=== PATIENT | female | born 1990 | race Caucasian/White ===

== ENCOUNTER 2020-08-29 13:46 | Emergency (ER) | payer BC ==
[2020-08-29 13:56] VITALS: BP 119/71; PULSE 97; RESP 18; TEMP 98.8
[2020-08-29] MEDS ORDERED: diphenhydrAMINE 50 MG CAP PO STA (14:20)
[2020-08-29] MEDS ORDERED: hydrOXYzine HCL 25 MG TAB PO STA (14:22)
--- NOTE | 2020-08-29 14:49 | ED ---
General Adult HPI - General Chief complaint: Recheck/Abnormal Lab/Rx Stated complaint: Rash Time Seen by Provider: 08/29/20 14:07 Source: patient Mode of arrival: ambulatory Limitations: no limitations - History of Present Illness Initial comments: 21-year-old female presenting to the emergency department with a chief complaint of itching. Patient reports about 2 weeks ago she developed a fever and upper respiratory infection symptoms that were ongoing for several days. Patient patient states she went to urgent care and was diagnosed with an upper respiratory infection. She also had a negative rapid test and a negative PCR test. Patient reports she had intermittent fevers here and there which she was able to treat with [id number] antipyretics. She reports over the last few days now she has developed pruritus throughout her whole body, particularly on her hands and legs. She denies any rashes. She does report history of sensitive skin but she denies using any new hygiene products. - Related Data Previous Rx's Medication Instructions Recorded hydrOXYzine HCL [Atarax] 25 mg PO TID PRN #15 tab 08/29/20 Allergies Allergy/AdvReac Type Severity Reaction Status Date / Time No Known Allergies Allergy Verified 08/29/20 13:56 Review of Systems ROS Statement: Those systems with pertinent positive or pertinent negative responses have been documented in the HPI. ROS Other: All systems not noted in ROS Statement are negative. Past Medical History Past Medical History: No Reported History History of Any Multi-Drug Resistant Organisms: None Reported Past Surgical History: No Surgical Hx Reported Past Psychological History: No Psychological Hx Reported Smoking Status: Never smoker Past Alcohol Use History: None Reported Past Drug Use History: None Reported General Exam - General Exam Comments Initial Comments: General: Well-developed well-nourished distress HEENT: Normocephalic/atraumatic, PERLL, pharynx erythema, swallowing well, EAC no erythema, no exudates, TM clear, no cervical lymph nodes Neck: Supple, nontender, trachea midline Chest/Lungs: Normal respirations, no signs of respiratory distress clear to au scultation bilaterally no wheezes, rales, rhonchi Cardiac: Regular rate and rhythm, normal S1-S2, no murmurs rubs or gallops Abdomen/GI: Soft nontender, bowel sounds equal or quadrant x4, no guarding, no rebound no CVA tenderness Musculoskeletal: Nontender, full range of motion, no edema, strength equal bilaterally Skin: Warmth, no rashes or lesions, no cyanosis or diaphoresis, no signs of rashes on the skin of the hands or feet Neurologic: AAO x 3, CN 2-12 intact, Psychiatric: Mood and affect normal, judgment normal Limitations: no limitations Course Vital Signs 08/29/20 13:51 Temperature 98.8 F Pulse Rate 97 Respiratory 18 Rate Blood Pressure 119/71 O2 Sat by Pulse 98 Oximetry Medical Decision Making - Medical Decision Making 29-year-old female presenting to the emergency department with a chief complaint of itching. On Physical examination, no signs of rashes detected. She is also clear to auscultation. ENT examination is unremarkable. Patient was given Atarax and Benadryl. On Reevaluation, patient reports improvement in symptoms. Patient will be discharged with Atarax. Strict return parameters were thoroughly discussed with patient was understanding and agreeable. Case discussed with physician. Disposition Clinical Impression: Pruritus Disposition: HOME SELF-CARE Condition: Stable Instructions (If sedation given, give patient instructions): Itchy Skin (ED) Additional Instructions: Take prescribed medication as directed. Follow up with the primary care physician. Return to emergency department if symptoms worsen. Prescriptions: hydrOXYzine HCL [Atarax] 25 mg PO TID PRN #15 tab PRN Reason: Itching Is patient prescribed a controlled substance at d/c from ED?: No Referrals: None,Stated [Primary Care Provider] - 1-2 days Time of Disposition: 14:49
== END 2020-08-29 14:53 | disposition home or self-care (01) ==
LOC: EC 13:46
DX: L29.9 Pruritus, unspecified (principal)
CPT/HCPCS: 99282

== ENCOUNTER 2020-08-30 06:19 | Emergency (ER) | payer BC ==
[2020-08-30 06:59] VITALS: RESP 18; TEMP 98.4
[2020-08-30] MEDS ORDERED: FAMOTIDINE 20 MG TAB PO STA (07:11)
[2020-08-30] MEDS ORDERED: methylPREDNISolone SOD SUCCI 125 MG/2 ML VIAL IM ONE (07:11)
--- NOTE | 2020-08-30 07:13 | ED ---
General Adult HPI - General Chief complaint: Allergic Reaction Stated complaint: rash Time Seen by Provider: 08/30/20 07:00 Source: patient Mode of arrival: ambulatory - History of Present Illness Initial comments: 29-year-old female patient presents to the emergency department today for evaluation of itching mostly over her hands, feet, arms, neck. Patient states this started a couple of days ago. She denies any rash with this. Denies any lip swelling, tongue swelling, or throat swelling. Denies shortness of breath. She was seen and evaluated emergency department yesterday was given prescription for hydroxyzine which she states is not working. States she has taken several doses since being discharged last evening. She denies any current fever or chills. Denies history of alcohol use or liver problems. Denies any new medications, exposures to soaps, lotions, creams, or detergent. Patient states that she has sensitive skin and is very careful about what she uses. Patient denies any recent cough, chest pain, abdominal pain, nausea, vomiting, diarrhea, constipation, back pain, numbness, tingling, dizziness, weakness, hematuria, dysuria, urinary urgency, urinary frequency, headache, visual changes, or any other complaints. Denies chance of . - Related Data Previous Rx's Medication Instructions Recorded hydrOXYzine HCL [Atarax] 25 mg PO TID PRN #15 tab 08/29/20 Famotidine [Pepcid] 20 mg PO DAILY #5 tablet 08/30/20 predniSONE 50 mg PO DAILY #5 tablet 08/30/20 Allergies Allergy/AdvReac Type Severity Reaction Status Date / Time No Known Allergies Allergy Verified 08/30/20 06:59 Review of Systems ROS Statement: Those systems with pertinent positive or pertinent negative responses have been documented in the HPI. ROS Other: All systems not noted in ROS Statement are negative. Past Medical History Past Medical History: No Reported History History of Any Multi-Drug Resistant Organisms: None Reported Past Surgical History: No Surgical Hx Reported Past Psychological History: No Psychological Hx Reported Smoking Status: Never smoker Past Alcohol Use History: None Reported Past Drug Use History: None Reported General Exam General appearance: alert, in no apparent distress, other (This is a well- developed, well-nourished adult female patient in no acute distress. Vital signs upon presentation are temperature 98.4F, pulse 83, respirations 18, blood pressure 122/77, pulse ox 98% on room air.) Eye exam: Present: normal appearance, PERRL, EOMI. Absent: scleral icterus, conjunctival injection, periorbital swelling Respiratory exam: Present: normal lung sounds bilaterally. Absent: respiratory distress, wheezes, rales, rhonchi, stridor Cardiovascular Exam: Present: regular rate, normal rhythm, normal heart sounds. Absent: systolic murmur, diastolic murmur, rubs, gallop, clicks GI/Abdominal exam: Present: soft, normal bowel sounds. Absent: distended, tenderness, guarding, rebound, rigid Extremities exam: Present: full ROM, normal capillary refill, other (There is some erythema noted over the bilateral antecubital regions due to patient scratching the area. No evidence or rash. Skin is otherwise pink, warm, dry. Cap refills less than 3 seconds.). Absent: normal inspection, tenderness, pedal edema, joint swelling, calf tenderness Neurological exam: Present: alert, oriented X3, CN II-XII intact Psychiatric exam: Present: normal affect, normal mood Skin exam: Present: warm, dry, intact, normal color. Absent: rash Course Vital Signs 08/30/20 06:57 Temperature 98.4 F Pulse Rate 83 Respiratory 18 Rate Blood Pressure 122/77 O2 Sat by Pulse 98 Oximetry Medical Decision Making - Medical Decision Making 29-year-old female patient presents to the emergency department today for evaluation of itching. Physical examination did reveal some redness over the bilateral antecubital regions from scratching. No evidence or rash. Remainder of physical exam is unremarkable. Patient has been taking hydroxyzine without relief. We will add Pepcid and steroid to her regimen. She is instructed to follow-up the primary care physician for recheck in 1-2 days. She is instructed to follow-up with dermatology if symptoms persist. Return parameters discussed in detail. She verbalizes understanding and agrees with this plan. Disposition Clinical Impression: Pruritus Disposition: HOME SELF-CARE Condition: Good Instructions (If sedation given, give patient instructions): Itchy Skin (ED) Additional Instructions: Take medications as directed. Avoid hot water during showers and baths. Take medications as directed. Follow-up with her primary care physician for recheck in 1-2 days. Follow-up with dermatology if symptoms do not improve over the next 2-3 days. Return to the emergency department immediately for any new, worsening, or concerning symptoms. Prescriptions: Famotidine [Pepcid] 20 mg PO DAILY #5 tablet predniSONE 50 mg PO DAILY #5 tablet Is patient prescribed a controlled substance at d/c from ED?: No Referrals: Amrit Stone MD [STAFF PHYSICIAN] - 1-2 days Time of Disposition: 07:13
[2020-08-30 07:55] VITALS: BP 113/74; PULSE 82
== END 2020-08-30 07:52 | disposition home or self-care (01) ==
LOC: EC 06:19
DX: L29.9 Pruritus, unspecified (principal)
CPT/HCPCS: 99282; 96372; J2930

== ENCOUNTER → 2022-05-29 | Outpatient (CLI) | payer OTHER ==
--- NOTE | 2022-05-29 14:26 | XR ---
EXAMINATION TYPE: XR wrist complete RT DATE OF EXAM: 05/29/2022 1:46 PM INDICATION: Patient age:Female; 31 years old; Reason for study: [id number] RT WRIST PAIN; [facility]. COMPARISON: None TECHNIQUE: Frontal, lateral and oblique views of the right wrist. FINDINGS: No acute osseous pathology, joint dislocation, or joint effusion. No evidence of any soft tissue swelling is seen. IMPRESSION: No acute osseous pathology.
== END | disposition home or self-care (01) ==
LOC: RADXRYALE 13:34
PROVIDERS: ATTEND Physician Assistant
DX: M25.531 Pain in right wrist (principal)